=== PATIENT | male | born 1980 | race Caucasian/White ===

== ENCOUNTER 2016-12-16 19:24 | Emergency (ER) | payer OTHER ==
--- NOTE | ~2016-12-16 | CT71 ---
[facility] A Service of [facility] RADIOLOGY TEXT RESULTS PATIENT: TANVI SIFUENTES LOCATION: [facility] : 84 UNIT #: [id number] AGE: [address]: Neel Graham MD SEX: M ORDER DR: [id number] [facility]. [place], [place] [address] [id number] E MR#: [id number] Acc #: [id number] NAME: TANVI SIFUENTES : 1980 SEX: M STUDY DATE/TIME: 12/16/2016 20:23 UNIT: [facility] ROOM: STUDY DESCRIPTION: CT Head Wo Contrast Attending Physician: Neel Graham Ordering Physician: Sloane Castellanos M.D. Primary Care Physician: Primary Care Physician No MEDICAL IMAGING REPORT This report is preliminary unless electronic signature is present EXAM CT brain without contrast HISTORY Confusion for 1 day. Head laceration today. This CT exam was performed with one or more of the following radiation dose reduction techniques: automatic exposure control, adjustment of mA and/or kV according to patient size, and iterative reconstruction. FINDINGS CT brain without contrast is limited by patient motion, despite scan repetition. There is a chronic-appearing depression fracture of the anterior wall of the left frontal sinus. There is an approximately 3 cm region of encephalomalacia in the anterior right frontal lobe which could be secondary to old infarct or trauma. No intracranial hemorrhage is identified. No edema, midline shift or extraaxial fluid collection is demonstrated although sensitivity is limited. IMPRESSION 1. No acute intracranial findings are identified although sensitivity is limited by motion artifact despite scan repetition. 2. There is a chronic-appearing depression fracture of the anterior wall of the left frontal sinus. Suggest correlation to physical exam findings. The anterior wall of the left frontal sinus is depressed approximately 4 mm. 3. Approximately 3 cm area of encephalomalacia in the anterior right frontal lobe could be due to old infarct or trauma. Dictated by... Giovanni Santo M.D. THIS IS AN ELECTRONICALLY VERIFIED REPORT [facility] A Service of [facility] RADIOLOGY TEXT RESULTS PATIENT: TANVI SIFUENTES [id number] [birth year] UNIT #: [id number] AGE: [address]: Neel Graham MD SEX: M ORDER DR: Giovanni Santo M.D. at 12/17/2016 3:15 PM ALEXANDER/kodi TD: 12/17/2016 08:20 JOB #: [id number] MEDICAL IMAGING REPORT COPY
[~2016-12-16 19:24] MED LIST: BACTRIM DS TABL1 TA1 PO; BLOOD THINNER SQ; FLOMAX0.4 M1 PO; IBUPROFEN800 MG PO; NAPROSYN500 MG PO; NO MEDICATIONS; NORCO 7.5-3251 EACH PO; PENICILLIN; PHENERGAN25 M1 PO; TYLENOL #3 PO; ULTRAM PO; VICODIN 5/1 TAB 5/50 PO; VICODIN 5/500 T1 TAB PO
[2016-12-16 19:51] LABS: BASOPHIL% 0.5 % (0-2.5); EOSINOPHIL# 0.1 X10e3 (0-0.7); EOSINOPHIL% 1.5 % (0.0-7.0); HEMATOCRIT 48.9 % (38.0-50.0); HEMOGLOBIN 16.7 gm/dL (13.0-16.0); LYMPHOCYTE# 2.6 X10e3 (1.0-3.5); MEAN CELL VOLUME 89.9 FL (83-96); MEAN CORPUSCULAR HEMOGLOBIN 30.7 PG (28-34); MEAN CORPUSCULAR HGB CONC 34.2 g/dL (30-36); MEAN PLATELET VOLUME 7.8 FL (6.5-11.5); MONOCYTE# 0.7 X10e3 (0-1.0); MONOCYTE% 8.1 % (3.0-12.0); NEUTROPHIL# 4.7 X10e3 (1.5-7.1); NEUTROPHIL% 57.9 % (40-75); PLATELET COUNT 132 X10e3 (140-420); RED BLOOD COUNT 5.44 X10e (3.90-5.60); RED CELL DISTRIBUTION WIDTH 14.1 % (11.0-15.5); WHITE BLOOD COUNT 8.1 X10e3 (4.0-10.5)
[2016-12-16 19:52] LABS: DIFF IND NO
[2016-12-16 20:23] LABS: ALBUMIN SERUM 4.1 g/dL (3.5-5.0); ALKALINE PHOSPHATASE 144 U/L (32-92); ALT (SGPT) 47 U/L (10-40); AST (SGOT) 68 U/L (10-42); BILIRUBIN, DIRECT 0.2 mg/dL (0.0-0.2); BILIRUBIN,INDIRECT 0.2 mg/dL (0.0-0.9); BILIRUBIN,TOTAL 0.4 mg/dL (0.2-2.0); BLOOD UREA NITROGEN 5 mg/dL (9-23); CALCIUM SERUM 8.4 mg/dL (8.4-10.2); CARBON DIOXIDE 23 mmol/L (22-31); CHLORIDE 107 mmol/L (100-111); CREATININE SERUM 0.5 mg/dL (0.6-1.4); GLOM FILT RATE Estimated ABOVE60 mL/min (>60); GLUCOSE FASTING 124 mg/dL (70-110); POTASSIUM 3.4 mmol/L (3.5-5.1); PROTEIN TOTAL SERUM 7.1 g/dL (6.0-8.3); SODIUM 143 mmol/L (135-145)
[2016-12-16 20:26] LABS: ALCOHOL BLOOD 464 mg/dL (0)
[2016-12-16 21:40] LABS: AMPHETAMINE NEG (NEG); BARBITURATES NEG (NEG); BENZODIAZEPINES NEG (NEG); COCAINE NEG (NEG); MARIJUANA NEG (NEG); OPIATES NEG (NEG); TRICYCLIC ANTIDEPRESSANTS NEG (NEG); U METHADONE NEG (NEG)
== END 2016-12-17 06:25 | disposition home or self-care (01) ==
LOC: CED 19:24
PROVIDERS: Student in an Organized Health Care Education/Training Program
DX: F10.129 Alcohol abuse with intoxication, unspecified (principal); S01.01XD Laceration without foreign body of scalp, subsequent encounter; X58.XXXA Exposure to other specified factors, initial encounter
CPT/HCPCS: 36415; 70450; 80048; 80076; 80307; 82947; 85025; 96360; 99284; G0480; J3411; J3475

== ENCOUNTER 2017-01-07 22:00 | Emergency (ER) | payer OTHER ==
--- NOTE | ~2017-01-07 | CT4 ---
[facility] A Service of [facility] & [facility] RADIOLOGY TEXT RESULTS PATIENT: TANVI SIFUENTES LOCATION: [facility] : 84 UNIT #: [id number] AGE: [address]: Neel Graham MD SEX: M ORDER DR: [id number] [facility] [address] [place], [place] [address] [id number] E MR#: [id number] Acc #: [id number] NAME: TANVI SIFUENTES : 1980 SEX: M STUDY DATE/TIME: 01/08/2017 2:02 UNIT: [facility] ROOM: STUDY DESCRIPTION: CT Abd and Pelv Wo Cont Attending Physician: Neel Graham Ordering Physician: Neel Graham, [id number] Primary Care Physician: Primary Care Physician No MEDICAL IMAGING REPORT This report is preliminary unless electronic signature is present EXAM CT abdomen and pelvis, noncontrast, 01/08/2017. HISTORY 36-year-old male in the ED with right-side chest and abdomen pain and bruising after a fall yesterday. He has a reported history of osteogenesis imperfecta. TECHNIQUE CT examination of the abdomen and pelvis without oral or IV contrast. This CT exam was performed with one or more of the following radiation dose reduction techniques: automatic exposure control, adjustment of mA and/or kV according to patient size, and iterative reconstruction. FINDINGS Abdomen: There is no evidence of acute fracture involving the visualized lumbar spine, lower ribs, sacrum, pelvis or hips. Old healed fracture deformities of the right tenth and eleventh ribs. Mild chronic-appearing superior endplate compression deformity at T8. Liver, pancreas, spleen and kidneys show no evidence of solid organ laceration. Single tiny nonobstructing calculus in the lower pole left kidney. No hematoma is seen within the abdomen, pelvis or body wall. Small bowel and colon are normal in caliber and appearance, as imaged. Pelvis: Bladder and rectum within normal limits. No inguinal hernia. IMPRESSION 1. No evidence of acute traumatic injury within the abdomen, pelvis or visualized lower chest. 2. Old healed fracture deformities of the right tenth and eleventh ribs. Mild chronic-appearing superior endplate compression deformity at T8. [facility] A Service of [facility] & [facility] RADIOLOGY TEXT RESULTS PATIENT: TANVI SIFUENTES [id number] 84 UNIT #: [id number] AGE: [address]: Neel Graham MD SEX: M ORDER DR: 3. Tiny nonobstructing left renal calculus. Dictated by... Lauro High M.D. THIS IS AN ELECTRONICALLY VERIFIED REPORT Lauro High M.D. at 01/08/2017 9:43 PM VIC/kodi TD: 01/08/2017 12:25 JOB #: [id number] MEDICAL IMAGING REPORT Page 1 of 1 COPY
--- NOTE | ~2017-01-07 | CR58 ---
[facility] A Service of [facility] & [facility] RADIOLOGY TEXT RESULTS PATIENT: TANVI SIFUENTES LOCATION: [facility] : 84 UNIT #: [id number] AGE: [address]: Neel Graham MD SEX: M ORDER DR: [id number] [facility] [address] [place], [place] [address] [id number] E MR#: [id number] Acc #: [id number] NAME: TANVI SIFUENTES : 1980 SEX: M STUDY DATE/TIME: 01/07/2017 22:13 UNIT: [facility] ROOM: STUDY DESCRIPTION: CR Cervical Spine 2 or 3 Views Attending Physician: Neel Graham Ordering Physician: Ed Doctor [id number] [facility] Primary Care Physician: Primary Care Physician No MEDICAL IMAGING REPORT This report is preliminary unless electronic signature is present EXAM Cervical spine 01/07 INDICATIONS Neck pain after fall yesterday. FINDINGS 4 views of the cervical spine were obtained. No comparison. No fracture or subluxation is identified. Vertebral body heights and disc spaces are normal. There is some mild anterior osteophyte formation at C3-4. Prevertebral soft tissues are normal. IMPRESSION Mild degenerative disease at C3-4, otherwise negative. Dictated by... Morgan Sharpe Jr., M.D. THIS IS AN ELECTRONICALLY VERIFIED REPORT Morgan Sharpe Jr., M.D. at 01/08/2017 4:23 PM LAURA/kodi TD: 01/08/2017 11:38 JOB #: [id number] MEDICAL IMAGING REPORT Page 1 of 1 COPY
--- NOTE | ~2017-01-07 | CR63 ---
[facility] A Service of [facility] & [facility] RADIOLOGY TEXT RESULTS PATIENT: TANVI SIFUENTES LOCATION: [facility] : 84 UNIT #: [id number] AGE: [address]: Neel Graham MD SEX: M ORDER DR: [id number] [facility] [address] [place], [place] [address] [id number] E MR#: [id number] Acc #: [id number] NAME: TANVI SIFUENTES : 1980 SEX: M STUDY DATE/TIME: 01/07/2017 22:09 UNIT: [facility] ROOM: STUDY DESCRIPTION: CR Chest 2 View Attending Physician: Neel Graham Ordering Physician: Ed Doctor [id number] [facility] Primary Care Physician: Primary Care Physician No MEDICAL IMAGING REPORT This report is preliminary unless electronic signature is present EXAM Chest two views. HISTORY Trauma. Right side rib pain. Medial wrist pain. Yesterday fall. FINDINGS PA and lateral radiographs of the chest are compared to study dated 01/11/2009. No acute appearing bony abnormality. Mild anterior wedge compression deformity. T8 vertebral body is unchanged from prior examination. The heart is normal in size. The lungs are well inflated. There is no evidence of acute pulmonary disease, pleural effusion or pneumothorax. No suspicious nodule. Visualized bowel gas pattern is normal. Dictated by... Geronimo Guzman M.D. THIS IS AN ELECTRONICALLY VERIFIED REPORT Geronimo Guzman M.D. at 01/08/2017 2:17 PM Yousuf TD: 01/08/2017 11:39 JOB #: [id number] MEDICAL IMAGING REPORT Page 1 of 1 COPY
--- NOTE | ~2017-01-07 | CT71 ---
[facility] A Service [facility] RADIOLOGY TEXT RESULTS PATIENT: TANVI SIFUENTES LOCATION: [facility] : 84 UNIT #: [id number] AGE: [address]: Neel Graham MD SEX: M ORDER DR: [id number] [id number] [facility]. [place], [place] [address] [id number] E MR#: [id number] Acc #: [id number] NAME: TANVI SIFUENTES : 1980 SEX: M STUDY DATE/TIME: 01/08/2017 1:52 UNIT: [facility] ROOM: STUDY DESCRIPTION: CT Head Wo Contrast Attending Physician: Carlos Alberto Graham M.D. Ordering Physician: Carlos Alberto Graham M.D. Primary Care Physician: No Primary Care Physician MEDICAL IMAGING REPORT This report is preliminary unless electronic signature is present EXAM CT head, noncontrast, 01/08/2017 HISTORY 36-year-old male in the ED complaining of right rib pain after a fall yesterday. TECHNIQUE CT examination of the head was performed without IV contrast. The images are degraded by patient motion artifact. The entire exam was repeated, and both sets of images are reviewed. This CT exam was performed with one or more of the following radiation dose reduction techniques: automatic control, adjustment of mA and/or kV according to patient size, and iterative reconstruction. FINDINGS No acute intracranial abnormalities identified. Chronic-appearing depressed left anterior frontal fracture at the level of the frontal sinus, unchanged since 12/16/2016. Chronic-appearing encephalomalacia in the right anterior frontal lobe likely related to old injury. This is also unchanged. No evidence of acute intracranial hemorrhage, mass, mass effect, cerebral edema or progressive ventricular enlargement. No convincing acute skull fracture. IMPRESSION 1. Motion-limited examination. 2. No acute intracranial abnormalities identified. No convincing acute skull fracture. 3. Chronic-appearing, mildly depressed left anterior frontal skull fracture deformity at the level of the frontal sinus, unchanged since 12/16/2016. [facility] Service [facility] RADIOLOGY TEXT RESULTS PATIENT: TANVI SIFUENTES LOCATION: [facility] : 84 UNIT #: [id number] AGE: [address]: Neel Graham MD SEX: M ORDER DR: 4. Chronic-appearing encephalomalacia in the right anterior frontal lobe, most likely related to old injury. This is also unchanged. Dictated by... Lauro High M.D. THIS IS AN ELECTRONICALLY VERIFIED REPORT Lauro High M.D. at 01/08/2017 9:43 PM VIC/randy TD: 01/08/2017 12:38 JOB #: [id number] MEDICAL IMAGING REPORT Page 1 of 1 COPY
--- NOTE | ~2017-01-07 | CR282 ---
[facility] A Service of [facility] RADIOLOGY TEXT RESULTS PATIENT: TANVI SIFUENTES LOCATION: [facility] : 84 UNIT #: [id number] AGE: [address]: Neel Graham MD SEX: M ORDER DR: [id number] [facility] [address] [place], [place] [address] [id number] E MR#: [id number] Acc #: [id number] NAME: TANVI SIFUENTES : 1980 SEX: M STUDY DATE/TIME: 01/07/2017 22:07 UNIT: [facility] ROOM: STUDY DESCRIPTION: CR Wrist Min 3 View Rt Attending Physician: Neel Graham Ordering Physician: Ed Doctor [id number] [facility] Primary Care Physician: Primary Care Physician No MEDICAL IMAGING REPORT This report is preliminary unless electronic signature is present EXAM Right hand series 01/07/2017. HISTORY 36-year-old male in the ED with right hand and wrist pain after a fall yesterday. TECHNIQUE Three-view right hand series was obtained. FINDINGS Patient positioning is reportedly limited, the fingertips are not fully included on the provided images. The exam shows an old healed fracture of the fifth metacarpal. No acute fracture or dislocation is demonstrated. IMPRESSION 1. Limited study as noted. 2. No acute osseous abnormality. 3. Old healed fifth metacarpal fracture. Dictated by... Lauro High M.D. THIS IS AN ELECTRONICALLY VERIFIED REPORT Lauro High M.D. at 01/08/2017 9:42 PM Chava TD: 01/08/2017 11:41 JOB #: [id number] MEDICAL IMAGING REPORT Page 1 of 1 COPY
== END 2017-01-08 04:59 | disposition home or self-care (01) ==
LOC: CED 22:00
DX: S66.911A Strain of unspecified muscle, fascia and tendon at wrist and hand level, right hand, initial encounter (principal); S00.83XA Contusion of other part of head, initial encounter; S20.211A Contusion of right front wall of thorax, initial encounter; F17.210 Nicotine dependence, cigarettes, uncomplicated; W10.9XXA Fall (on) (from) unspecified stairs and steps, initial encounter; Y92.009 Unspecified place in unspecified non-institutional (private) residence as the place of occurrence of the external cause
CPT/HCPCS: 29125; 70450; 71020; 72040; 73110; 74176; 99284